=== PATIENT | female | born 1955 | race Caucasian/White ===

== ENCOUNTER 2017-02-02 17:03 | Emergency (ER) | payer OTHER ==
[2017-02-02 17:43] VITALS: BP 148/72
[2017-02-02] MEDS ORDERED: predniSONE TAB* 20 MG PO ONE (18:44)
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
== END 2017-02-02 19:06 | disposition home or self-care (01) ==
LOC: UCEAST 17:03
DX: L25.9 Unspecified contact dermatitis, unspecified cause (principal); E11.9 Type 2 diabetes mellitus without complications; I10 Essential (primary) hypertension; Z98.49 Cataract extraction status, unspecified eye; Z88.6 Allergy status to analgesic agent; Z88.0 Allergy status to penicillin; Z87.891 Personal history of nicotine dependence
CPT/HCPCS: 99212; G0463; J7512

== ENCOUNTER 2017-10-03 20:40 | Emergency (ER) | payer SELFPAY ==
[2017-10-03] MEDS ORDERED: NS 0.9% 1000 ML* 1,000 ML IV ONE (21:02)
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
--- NOTE | 2017-10-03 21:36 | RAD ---
INDICATION: Right thumb pain COMPARISON: None TECHNIQUE: AP, lateral, and oblique views were obtained. FINDINGS: There is no acute fracture or dislocation. There is mild/moderate first CMC joint osteoarthritis There is soft tissue swelling. IMPRESSION: OSTEOARTHRITIS. NO ACUTE FINDINGS
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
[2017-10-03 22:00] LABS: ABS Basophils 0 10^3/ul (0-0.2); ABS Eosinophils 0.1 10^3/ul (0-0.6); ABS Lymphocytes 2.2 10^3/ul (1.0-4.8); ABS Monocytes 0.7 10^3/ul (0-0.8); ABS Neutrophils 4.9 10^3/ul (1.5-7.7); ABS Nucleated RBC 0 10^3/ul; Eosinophil % 1.9 % (0-6); Hematocrit 38 % (35-47); Hemoglobin 12.6 g/dl (12.0-16.0); Lymphocyte % 27.2 % (25-47); Mean Corpuscular HGB Conc 33 g/dl (31-36); Mean Corpuscular Hemoglobin 28 pg (27-31); Mean Corpuscular Volume 84 fL (80-97); Mean Platelet Volume 8 um3 (7.4-10.4); Nucleated Red Blood Cells % 0; Platelet Count 229 10^3/ul (150-450); Red Blood Count 4.53 10^6/ul (4.0-5.4); Red Cell Distribution Width 14 % (10.5-15)
[2017-10-03 22:04] LABS: INR 0.85 (0.77-1.02)
[2017-10-03 22:15] LABS: EGFR Non-African American 57.8 (>60)
[2017-10-03] MEDS ORDERED: Iodixanol* (CONTRAST) 320 MG/ML 100 ML SDV IV ONE (22:18)
[2017-10-03 22:20] LABS: Urine Appearance Clear; Urine Blood Negative (Negative); Urine Color Straw; Urine Ketones Negative (Negative); Urine Protein Negative (Negative); Urine Specific Gravity 1.011 (1.010-1.030); Urine Urobilinogen Negative (Negative)
[2017-10-03] MEDS ORDERED: oxyCODONE/Acetamin 5/325 MG* TAB PO ONE (22:56)
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
[2017-10-04 00:27] VITALS: BP 139/71
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
== END 2017-10-04 00:20 | disposition home or self-care (01) ==
LOC: ED 20:40
DX: R07.89 Other chest pain (principal); R51 Headache; M79.644 Pain in right finger(s); V43.62XA Car passenger injured in collision with other type car in traffic accident, initial encounter; Y92.410 Unspecified street and highway as the place of occurrence of the external cause; M18.9 Osteoarthritis of first carpometacarpal joint, unspecified; Z87.891 Personal history of nicotine dependence; Z88.6 Allergy status to analgesic agent; Z88.0 Allergy status to penicillin
CPT/HCPCS: 36415; 70450; 71045; 71260; 74177; 80053; 81003; 81015; 83605; 83690; 84484; 85025; 85610; 87086; 93005; 96360; 99284; A9270-GY; Q9967